=== PATIENT | male | born 1930 | race African-American/Black ===

== ENCOUNTER 2017-01-20 23:14 | Inpatient (IN) | payer MEDICARE, OTHER ==
--- NOTE | ~2017-01-20 | DS ---
Discharge Summary [facility] [address] [place]. [address] NAME: MERCEDES RAMACHANDRAN : [birth year] STATUS : DIS IN PAT#: [id number] AGE: 86 ADM/REG DATE : 01/21/17 MR#: [id number] REPORT SERV DATE: 01/26/17 DICTATED BY: TODD MARTINEZ DATE: 01/25/17 REPORT STATUS : Draft TRANSCRIBED BY: MODL DATE: 01/25/17 ADMISSION DATE: 01/21/2017 DISCHARGE DATE: 01/25/2017 CONDITION ON DISCHARGE: Stable. DISPOSITION: Discharge to home with Home Health Nurse and Home PT/OT. CONSULTATIONS: GI consult by Dr. Becca Scott. PROCEDURES PERFORMED DURING THIS HOSPITALIZATION: Include EGD and colonoscopy. DIAGNOSES ON DISCHARGE: Include 1. Lower GI bleed or rectal hemorrhage which has resolved and this is most likely due to diverticulosis and internal hemorrhoids combination. 2. Chronic atrial fibrillation - The patient now is only on aspirin 81 mg once a day as he is at high risk for GI bleed. Given all the risk factors, he does not need to be on any stronger anticoagulation than aspirin 81 mg once a day as pretty much this is lone atrial fibrillation and at this time given this risk of GI bleed no other anticoagulants. Other diagnoses that are stable include diabetes mellitus- controlled, hypertension-controlled, COPD-controlled, history of congestive heart failure which is stable, moderately advanced dementia, which is also stable at this time. BRIEF HOSPITAL COURSE: The patient is an 86-year-old, black male patient, who was admitted with the diagnosis as outlined in history and physical exam. Essentially, he was admitted with extreme fatigue and hemoglobin and hematocrit as low as 5.6 and 16. The patient was transferred to the unit and given blood transfusion and GI was consulted promptly. The patient underwent an upper endoscopy or EGD that showed surprisingly completely normal esophagus, stomach, and duodenum without any bleeding. Then subsequently he underwent a colonoscopy. This showed again, no bleeding but a diverticulosis which probably had caused the previous bleed and also internal hemorrhoids. The patient was then transferred back to floor in stable condition. For the last 48 hours, the patient has been tolerating food well and has had bowel movements without absolutely any more bleeding. His fatigue also has significantly improved. He in fact is able to get around somewhat in the room with the help of a walker. His daughter called this morning requesting physical therapy and occupational therapy at home and this is appropriate. Hence, we are discharging him home with Home Health, Home PT, and Home OT. He will be going home on the following medications: Aspirin 81 mg once a day, metformin 500 mg p.o. b.i.d., Daliresp 500 mcg p.o. at bedtime, Altace 2.5 mg once a day, glipizide 5 mg p.o. b.i.d., Lopressor 12.5 mg p.o. t.i.d., polysaccharide iron complex 150 mg p.o. b.i.d., Aricept 10 mg p.o. daily, aspirin 81 mg p.o. daily, Rythmol or propafenone 300 mg p.o. three times a day for atrial fibrillation, megestrol acetate, Megace 40 mg p.o. daily, Prilosec 20 mg once a day. Spiriva once a day as directed, Pulmicort twice a day as directed, Perforomist inhalation 20 mcg inhalation twice a day and all this is for his COPD. Discharge Summary [place] [id number] [place]. [address] NAME: MERCEDES RAMACHANDRAN : [birth year] STATUS : DIS IN PAT#: [id number] AGE: 86 ADM/REG DATE : 01/21/17 MR#: [id number] REPORT SERV DATE: 01/26/17 DICTATED BY: TODD MARTINEZ DATE: 01/25/17 REPORT STATUS : Draft TRANSCRIBED BY: JEANETTE DATE: 01/25/17 Regarding his diabetes, the patient will continue glargine insulin or Lantus insulin at 10 units subcutaneously at bedtime. Verapamil 200 mg p.o. at bedtime, will be continued. The patient is also being given MiraLAX powder one packet p.o. daily as directed. LABORATORY DATA: I have the following most recent lab results on this patient. CBC on the day of discharge shows a WBC of 7.4, hemoglobin 8.9, hematocrit 28.1, and platelet count of 339. Electrolyte profile shows completely normal electrolytes and BUN is 16 and creatinine is 1.1. I have spent about 40 minutes in coordinating discharge care of this patient including face- to-face encounter and the patient is advised to follow up with his PCP and other specialists as scheduled. CARMELINA/JEANETTE Todd Martniez M.D. / [phone] CC: Kacy Starr M.D.
--- NOTE | ~2017-01-20 | EGD ---
EGD REPORT [facility] [address] [place]. [address] NAME: MERCEDES JUDGE : [birth year] STATUS : ADM IN PAT#: [id number] AGE: 86 ADM/REG DATE : 01/21/17 MR#: [id number] REPORT SERV DATE: 01/22/17 DICTATED BY: BENITO ALEGRIA DATE: 01/22/17 REPORT STATUS : Draft TRANSCRIBED BY: [employer] DATE: 01/22/17 Endoscopy Center Patient Name: Mercedes Judge Date of : 1930 Attending MD: BENITO ALEGRIA, Procedure Date No Time: 01/22/2017 Procedure: Colonoscopy Indications: Iron deficiency anemia Medicines: Monitored Anesthesia Care Complications: No immediate complications. Estimated blood loss: None. Procedure: Pre-Anesthesia Assessment: - ASA Grade Assessment: IV - A patient with severe systemic disease that is a constant threat to life. After I obtained informed consent, the scope was passed under direct vision. Throughout the procedure, the patient's blood pressure, pulse, and oxygen saturations were monitored continuously. The CF [id number] was introduced through the anus and advanced to the terminal ileum. The colonoscopy was performed without difficulty. The patient tolerated the procedure well. The quality of the bowel preparation was adequate. Findings: The perianal and digital rectal examinations were normal. Internal hemorrhoids were found, and they were Grade II (internal hemorrhoids that prolapse but reduce spontaneously). A pedunculated polyp was found in the ascending colon. The polyp was 30 mm in size. The polyp was removed with a hot snare. Resection and retrieval were complete. Verification of patient identification for the specimen was done. Estimated blood loss was minimal. A sessile polyp was found in the transverse colon. The polyp was 14 mm in size. The polyp was removed with a hot snare. Resection and retrieval were complete. Verification of patient identification for the specimen was done. Estimated blood loss was minimal. A sessile polyp was found in the transverse colon. The polyp was 6 mm in size. The polyp was removed with a cold snare. Resection and retrieval were complete. Verification of patient identification for the specimen was done. Estimated blood loss was minimal. Many small-mouthed diverticula were found in the entire colon. The exam was otherwise without abnormality. Impression: - Internal hemorrhoids. - One 30 mm polyp in the ascending colon. Resected and retrieved. - One 14 mm polyp in the transverse colon. Resected and EGD REPORT [address] [address] NAME: MERCEDES JUDGE : [birth year] STATUS : ADM IN [facility]#: [id number] AGE: 86 ADM/REG DATE : 01/21/17 MR#: [id number] REPORT SERV DATE: 01/22/17 DICTATED BY: BENITO ALEGRIA DATE: 01/22/17 REPORT STATUS : Draft TRANSCRIBED BY: [employer] DATE: 01/22/17 retrieved. - One 6 mm polyp in the transverse colon. Resected and retrieved. - Diverticulosis in the entire examined colon. - The examination was otherwise normal. Recommendation: - Patient has a contact number available for emergencies. The signs and symptoms of potential delayed complications were discussed with the patient. Return to normal activities tomorrow. Written discharge instructions were provided to the patient. - Return to previous diet. - Continue present medications. - Await pathology results. - Repeat colonoscopy for surveillance based on pathology results. Procedure Code(s): --- Professional --- 39061, Colonoscopy, flexible, proximal to splenic flexure; with removal of tumor(s), polyp(s), or other lesion(s) by snare technique Diagnosis Code(s): --- Professional --- K64.1, Second degree hemorrhoids K57.30, Diverticulosis of large intestine without perforation or abscess without bleeding D12.3, Benign neoplasm of transverse colon D12.2, Benign neoplasm of ascending colon D50.9, Iron deficiency anemia, unspecified CPT copyright 2013 [employer]. All rights reserved. The codes documented in this report are preliminary and upon tuck pointer review may be revised to meet current compliance requirements. BENITO ALEGRIA, 01/22/2017 3:42 PM Number of Addenda: 0 Note Initiated On: 01/22/2017 3:11 PM Scope Withdrawal Time 0 hours 9 minutes 22 seconds
--- NOTE | ~2017-01-20 | EGD ---
EGD REPORT [facility] [address] [place]. [address] NAME: MERCEDES JUDGE : [birth year] STATUS : ADM IN PAT#: [id number] AGE: 86 ADM/REG DATE : 01/21/17 MR#: [id number] REPORT SERV DATE: 01/21/17 DICTATED BY: MATT POLLARD DATE: 01/21/17 REPORT STATUS : Draft TRANSCRIBED BY: [facility] DATE: 01/21/17 Endoscopy Center Patient Name: Mercedes Judge Date of : 1930 Attending MD: MATT POLLARD MD Procedure Date No Time: 01/21/2017 Procedure: Upper GI endoscopy Indications: Melena Referring MD: ISABELLA HARTLEY Medicines: Monitored Anesthesia Care Complications: No immediate complications. Estimated blood loss: None. Procedure: Pre-Anesthesia Assessment: - ASA Grade Assessment: III - A patient with severe systemic disease. After obtaining informed consent, the endoscope was passed under direct vision. Throughout the procedure, the patient's blood pressure, pulse, and oxygen saturations were monitored continuously. The GIF [id number] was introduced through the mouth, and advanced to the second part of duodenum. The upper GI endoscopy was accomplished without difficulty. The patient tolerated the procedure well. Findings: The examined esophagus was normal. The stomach was normal. The examined duodenum was normal. The cardia and gastric fundus were normal on retroflexion. Impression: - Normal examination with no suggestion of bleeding Recommendation: - [facility]. - Check hemoglobin q 12 hours until stable. - Perform a colonoscopy tomorrow. Procedure Code(s): --- Professional --- 48912, Esophagogastroduodenoscopy, flexible, transoral; diagnostic, including collection of specimen(s) by brushing or washing, when performed (separate procedure) Diagnosis Code(s): --- Professional --- K92.1, Melena CPT copyright 2013 [employer]. All rights reserved. EGD REPORT [facility] [address] [address] NAME: MERCEDES JUDGE : [birth year] STATUS : ADM IN [facility]#: [id number] AGE: 86 ADM/REG DATE : 01/21/17 MR#: [id number] REPORT SERV DATE: 01/21/17 DICTATED BY: MATT POLLARD DATE: 01/21/17 REPORT STATUS : Draft TRANSCRIBED BY: [employer] DATE: 01/21/17 The codes documented in this report are preliminary and upon graphite disk assembler review may be revised to meet current compliance requirements. Matt Pollard MD MATT POLLARD MD 01/21/2017 11:51 AM This report has been signed electronically. Number of Addenda: 0 Note Initiated On: 01/21/2017 10:48 AM Scope Withdrawal Time 0 hours 0 minutes 0 seconds [address] [place] [address]
--- NOTE | ~2017-01-20 | CN ---
Consultation Report [place] [address] [facility] [place]. [address] NAME: MERCEDES JUDGE : [birth year] STATUS : ADM IN [facility]#: [id number] AGE: 86 ADM/REG DATE : 01/21/17 MR#: [id number] REPORT SERV DATE: 01/21/17 DICTATED BY: BECCA SCOTT DATE: 01/21/17 REPORT STATUS : Draft TRANSCRIBED BY: MODL DATE: 01/21/17 CONSULTATION DATE OF CONSULTATION: 01/21/2017 REASON FOR EVALUATION: GI bleeding. HISTORY OF PRESENT ILLNESS: Mr. Judge is an 86-year-old community dwelling man, who presents with worsening acute on chronic anemia. The patient has a history of recurrent GI bleeding characterized by melena. 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 His last colonoscopy was 07/2012, with removal of a cecal tubulovillous adenoma and a transverse colon tubular adenoma. He has had recent worsening fatigue, and his daughter noticed that his stools are black. He uses aspirin on a daily basis, but does not use anti-inflammatory medications. Note, this was accompanied by omeprazole. PAST MEDICAL HISTORY: 1. COPD. 2. History of congestive heart failure. 3. Atrial fibrillation. 4. Hypertension. 5. Diabetes mellitus. 6. Dementia. 7. History of bladder cancer. 8. Remote history of tobacco use. 9. History of pneumonia. 10.History of urinary tract infection. MEDICATIONS: On admission include albuterol, aspirin, Pulmicort, B12, Aricept, glipizide, insulin, Megace, Glucophage, Lopressor, Prilosec, iron supplement, Rythmol, Altace, Daliresp, Spiriva, and Verelan. ALLERGIES: MORPHINE AND CODEINE CAUSE ALTERED MENTAL STATUS. SOCIAL HISTORY: The patient is a retired it business process architect. He lives locally. His daughter lives close by and she has worked in healthcare. She has tentative problems. FAMILY HISTORY: Noncontributory. PHYSICAL EXAMINATION: GENERAL: Reveals an elderly man resting comfortably. VITAL SIGNS: Blood pressure 117/46, temp 97.9, heart rate 57. SKIN: Warm and dry with no lesions. HEENT: No icterus. Consultation Report [facility] [address] [address] NAME: MERCEDES JUDGE : [birth year] STATUS : ADM IN [facility]#: [id number] AGE: 86 ADM/REG DATE : 01/21/17 MR#: [id number] REPORT SERV DATE: 01/21/17 DICTATED BY: BECCA SCOTT DATE: 01/21/17 REPORT STATUS : Draft TRANSCRIBED BY: MODL DATE: 01/21/17 NECK: Supple. No adenopathy. CHEST: With bilateral squeaks. CARDIAC: Regular rate and rhythm at this time with no murmur. ABDOMEN: Normal bowel sounds. Soft and nontender. LABORATORY DATA: Sodium 142, potassium 4.2, BUN 18, creatinine 1.3. AST 30, ALT 14, alkaline phosphatase 50, total bilirubin 0.3. White blood cell count 7.5, hemoglobin 5.6 with transfusion in progress, MCV 69.8, MCH 19, platelets 377,000. Protime 14, INR 1.2, PTT 26.3. 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 RECOMMENDATIONS: 1. Upper endoscopy. 2. Consider next step including colonoscopy versus small bowel capsule study. 3. Hold aspirin for now. 4. Agree with PPI. Pending results of examination. 5. Follow up H and H after transfusion. Thank you for asking us to participate in his management. CRISTÓBAL/JEANETTE Becca Scott M.D. / [phone] CC: MD Josef Avila M.D. James Scott Manton, M.D. Robert McKoy, M.D.
--- NOTE | ~2017-01-20 | HP ---
History And Physical [place] [id number] [facility] [place]. [address] NAME: MERCEDES RAMACHANDRAN : [birth year] STATUS : ADM IN [facility]#: [id number] AGE: 86 ADM/REG DATE : 01/21/17 MR#: [id number] REPORT SERV DATE: 01/21/17 DICTATED BY: OLIVERIO MARRERO DATE: 01/21/17 REPORT STATUS : Draft TRANSCRIBED BY: MODL DATE: 01/21/17 DATE OF ADMISSION: 01/21/2017 CHIEF COMPLAINT: Extreme fatigue. HISTORY OF PRESENT ILLNESS: This is an 86-year-old gentleman with history of diabetes, hypertension, COPD, congestive heart failure, atrial fibrillation and dementia presenting with extreme fatigue. Please note that the patient has dementia at baseline and was not able to provide any history. The patient's daughter was present in the ER who provided much of the history. I also carefully reviewed existing medical records. The patient was brought to the ER because the patient was suffering from extreme fatigue. The patient's daughter first noticed it about a week ago, when he started requiring increasing amount of assistance to get around and the past day or two, it has been so bad that the patient was actually having a bowel movement in bed, because he was not able to get out. Today, the patient's daughter noticed that his bowels were unusually black. 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 With the patient having at least moderate dementia, he really did not have any acute complaints and he looked comfortable throughout this episode. In the ER, patient was found to be afebrile and hemodynamically stable. Initial lab evaluation was actually fairly benign except for a hemoglobin of 5.6. The patient's baseline hemoglobin is around 10. Internal Medicine consultation was requested for admission of the patient for further evaluation and care. REVIEW OF SYSTEMS: The patient denies any fevers or chills. Also, 14-point review of systems reviewed and negative other than mentioned above. MEDICATIONS: 1. ProAir two puffs inhaled as needed. 2. Albuterol nebulizer as needed. 3. Aspirin 81 mg p.o. daily. 4. Pulmicort 0.5 mg inhaled twice daily. 5. Vitamin B12 1000 mcg IM every 30 days. 6. Aricept 10 mg p.o. at bedtime. 7. Perforomist inhaled 20 mcg twice daily. 8. Glucotrol 5 mg p.o. b.i.d. 9. Lantus 10 units subcu at bedtime. 10.Megace 40 mg p.o. daily. 11.Metformin 500 mg p.o. b.i.d. 12.Lopressor 12.5 mg p.o. three times daily. 13.Prilosec 20 mg p.o. daily. 14.Altorex 150 mg p.o. b.i.d. 15.Rythmol 300 mg p.o. three times daily. History And Physical [address] [place]. [address] NAME: MERCEDES RAMACHANDRAN : [birth year] STATUS : ADM IN [facility]#: [id number] AGE: 86 ADM/REG DATE : 01/21/17 MR#: [id number] REPORT SERV DATE: 01/21/17 DICTATED BY: OLIVERIO MARRERO DATE: 01/21/17 REPORT STATUS : Draft TRANSCRIBED BY: JEANETTE DATE: 01/21/17 16.Altace 2.5 mg p.o. daily. 17.Daliresp 500 mcg p.o. at bedtime. 18.Spiriva one capsule inhaled daily. 19.Verapamil 200 mg p.o. at bedtime. ALLERGIES: 1. MORPHINE. 2. CODEINE. PAST MEDICAL HISTORY: 1. Insulin-dependent diabetes type 2. 2. COPD, on oxygen at baseline 2.5 L. 3. Hypertension. 4. Congestive heart failure, unknown type and ejection fraction. 5. Atrial fibrillation. 6. Dementia. 7. 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 PAST SURGICAL HISTORY: 1. Some kind of bladder surgery for cancer in the past. FAMILY HISTORY: 1. Diabetes. 2. Miscellaneous cancers. SOCIAL HISTORY: The patient does not smoke, drink alcohol, or use any illicit drugs. The patient lives at home with his . The patient's daughter lives 2 blocks away and she visits him on daily basis. The patient's daughter is here in the ER at bedside. PHYSICAL EXAMINATION: VITAL SIGNS: Temperature 97.9, blood pressure 120/57, pulse 59, respiratory rate is 22, saturating 96% on 2.5 L of oxygen which is his home dose. NEUROLOGIC: The patient is alert, but pleasantly disoriented with the dementia. The patient has no obvious focal neurologic deficits. GENERAL: The patient is awake, does not appear to be in acute distress, and he is cooperative. NECK: No JVD. No lymphadenopathy. Normal thyroid. CHEST: No midline sternotomy scar and no tenderness to palpation. LUNGS: Clear to auscultation bilaterally with normal respiratory effort on 2.5 L of oxygen per nasal cannula, which is his home dose. CARDIOVASCULAR: Regular rate and rhythm with no murmurs, rubs, or gallops, and PMI is nondisplaced. ABDOMEN: Soft, nontender, with active bowel sounds and no organomegaly. EXTREMITIES: No edema. Normal distal pulses. No calf tenderness. SKIN: Clean, dry, warm, and intact. History And Physical [address] [address] NAME: MERCEDES RAMACHANDRAN : [birth year] STATUS : ADM IN [facility]#: [id number] AGE: 86 ADM/REG DATE : 01/21/17 MR#: [id number] REPORT SERV DATE: 01/21/17 DICTATED BY: OLIVERIO MARRERO DATE: 01/21/17 REPORT STATUS : Draft TRANSCRIBED BY: JEANETTE DATE: 01/21/17 LABORATORY DATA: Sodium is 142, potassium 4.2, chloride 107, BUN 18, creatinine 1.32, glucose 81, calcium 8.6. LFTs are within normal limits. White blood cell count is 7.5, hemoglobin is 5.6, MCV is 69.8, platelets 377, INR is 1.2. ASSESSMENT: This is an 86-year-old gentleman with history of diabetes, chronic obstructive pulmonary disease, congestive heart failure, atrial fibrillation and GI bleed presenting with extreme fatigue and upper GI bleed. 1. Extreme fatigue, manifestation of symptomatic anemia due to an upper gastrointestinal bleed. The patient's hemoglobin is 5.6 here in the ER today. 2. Congestive heart failure, unknown type and ejection fraction, however, patient appears to be well compensated and euvolemic. 3. Chronic obstructive pulmonary disease, on home oxygen at 2.5 L. Stable today. 4. Hypertension. 5. Chronic atrial fibrillation. 6. At least moderate dementia. 7. Diabetes type 2. PLAN: My plan is to admit the patient under telemetry monitoring. The patient will be given 2 packs of RBCs. The patient will not be given IV fluids as patient will get plenty of volume resuscitation with PRBCs alone, and I do not want to induce congestive heart failure, if anything. Also noting that the patient is very hemodynamically stable. H and H's will be closely monitored. The patient will be on Protonix drip and I will get GI consultation at this time. I will also go ahead and request medical records from Dr. Nicolas's office who is the patient's interactive marketing strategist to establish baseline congestive heart failure status. Otherwise, for the rest of stable past medical conditions, including COPD, hypertension, atrial fibrillation dementia et. al. I will continue home medications. Standard DVT prophylaxis. The patient is full code at this time. YSC/MODL Oliverio Marrero MD / [phone] CC: Scottie Nicolas M.D. Tristan Eden M.D.
[~2017-01-20 23:14] MED LIST: ACET500CAP PO; ALLEGRA180 PO; ALTA2.5 PO; ALTOREX150 MG PO; ARICEPT10 PO; ARICEPT5 PO; ASAB PO; B121000P IM; C5 PO; CEFT5 PO; CLARIT10 PO; COUMADIN3 MG PO; COUMADIN4 MG PO; CYANO1000T PO; DALIRESP500 MCG PO; DIGITEK0.125 MG PO; DUONEB INH; GLIPIZIDE PO; GLUCOTRO10 PO; GLUCOTROL5 PO; GLUCPH PO; HALF81 PO; IFEREX 150 PO; INSNOVN SC; LAN25 PO; LANTUS SC; LOM PO; LOP25 PO; MEG40 PO; METAGLIP1 TA2 PO; METFORMIN PO; NASACORTAQ NAS; OMNICEF300 PO; PERFOROM INH; POLY IRON150 MG PO; PRILO PO; PROAIR HFA INH; PULMICORT180 MCG INH; PULRESP.5 INH; RHINOCORT; RYTHMOL150 MG PO; RYTHMOL225 MG PO; RYTHMOL300 MG PO; SPIRIVA INH; STERAP512; SUPER B-100 PO; TESS PO; TRAZ50 PO; ULTRAM50 PO; VENTOLIN HFA INH; VERELANPM1 PO; VERELANPM2 PO; VITAMIN B PO; VITAMIN B12; X25 PO; [UNRECOGNIZED DRUG - CODE] PO
[2017-01-20 23:40] LABS: BASOPHILS 0.4 %; BASOPHILS ABSOLUTE 0.03 10/3/uL (0.0-0.16); EOSINOPHILS 5.1 %; EOSINOPHILS ABSOLUTE 0.38 10/3/uL (0.0-0.53); ER CBC TAT 0 Hrs 05 Mins; HEMATOCRIT 19.6 % (40.0-51.0); HEMOGLOBIN 5.6 g/dL (13.6-17.8); IMMATURE GRANULOCYTES 0.1 %; IMMATURE GRANULOCYTES ABSOLUTE 0.01 10/3/uL (0.0-0.11); LYMPHOCYTES 13.4 %; MEAN CORPUS HGB CONC 28.6 g/dL (32.0-36.0); MEAN CORPUSCULAR HEMOGLOB 19.9 pg (26.0-34.0); MEAN CORPUSCULAR VOLUME 69.8 fL (80-100); MEAN PLATELET VOLUME 8.5 fL (9.2-13.0); MONOCYTES 7.4 %; MONOCYTES ABSOLUTE 0.55 10/3/uL (0.21-1.20); NEUTROPHILS 73.6 %; NEUTROPHILS ABSOLUTE 5.51 10/3/uL (2.02-8.40); PLATELET COUNT 377 10/3/uL (150-400); RBC DISTRIBUTION WIDTH 16.3 % (12.0-16.0); RED CELL COUNT 2.81 10/6/uL (4.7-6.1); WHITE BLOOD CELLS 7.5 10/3/uL (4.5-10.5)
[2017-01-20 23:43] LABS: MANUAL DIFF NO %
[2017-01-20 23:49] LABS: INTERNATIONAL NORMAL RATI 1.2 UNITS (-); PARTIAL THROMBO TIME 26.3 SEC (22.5-37.2); PROTIME (NOT ORD) 14.8 SEC (12.0-14.5)
[2017-01-20 23:58] LABS: A/G RATIO 0.8 (0.7-1.9); ALBUMIN 3.1 G/DL (3.5-5.0); ALKALINE PHOSPHATASE 50 U/L (45-117); BUN (BLOOD UREA NITROGEN) 18 MG/DL (6-23); CALCIUM, SERUM 8.6 MG/DL (8.5-10.4); CHLORIDE, SERUM 107 MMOL/L (96-112); CO2 (CARBON DIOXIDE) 24 MMOL/L (24-34); CREATININE 1.32 MG/DL (0.70-1.30); GFR AFRICAN AMERICAN 56 ML/MIN (>=60); GFR NON AFRICAN AMERICAN 48 ML/MIN (>=60); GLOBULIN 3.7 G/DL (2.5-4.1); GLUCOSE, SERUM 81 MG/DL (60-99); POTASSIUM, SERUM 4.2 MMOL/L (3.5-5.3); SGOT(AST) < 3 U/L (5-40); SGPT(ALT) 14 U/L (5-65); SODIUM, SERUM 142 MMOL/L (135-148); TOTAL BILIRUBIN 0.3 MG/DL (0-1.2); TOTAL PROTEIN 6.8 G/DL (6.0-8.5)
[2017-01-21 00:06] LABS: PLATELET ESTIMATE ADQ (ADEQUATE)
[2017-01-21 00:07] LABS: ANISOCYTOSIS 1+ (5-10/OIF) (0-5/OIF); MACROCYTES 1+ (5-10/OIF) (0-5/OIF)
[2017-01-21] MEDS ORDERED: GLUCPH PO (00:29)
[2017-01-21] MEDS ORDERED: ALTA2.5 PO (00:29)
[2017-01-21] MEDS ORDERED: DALIRESP500 MCG PO (00:29)
[2017-01-21] MEDS ORDERED: LOP25 PO (00:30)
[2017-01-21] MEDS ORDERED: GLUCOTROL5 PO (00:30)
[2017-01-21] MEDS ORDERED: ARICEPT10 PO (00:30)
[2017-01-21] MEDS ORDERED: ALTOREX150 MG PO (00:30)
[2017-01-21] MEDS ORDERED: PULRESP.5 INH (00:31)
[2017-01-21] MEDS ORDERED: SPIRIVA INH (00:31)
[2017-01-21] MEDS ORDERED: RYTHMOL300 MG PO (00:31)
[2017-01-21] MEDS ORDERED: B121000P IM/SC (00:31)
[2017-01-21] MEDS ORDERED: MEG40 PO (00:31)
[2017-01-21] MEDS ORDERED: HALF81 PO (00:31)
[2017-01-21] MEDS ORDERED: PRILO PO (00:31)
[2017-01-21] MEDS ORDERED: PERFOROM INH (00:32)
[2017-01-21] MEDS ORDERED: LANTUS SC (00:32)
[2017-01-21] MEDS ORDERED: PROAIR HFA INH (00:32)
[2017-01-21] MEDS ORDERED: ALBUTEROL0.083 % INH (00:33)
[2017-01-21] MEDS ORDERED: VERELANPM2 PO (00:33)
[2017-01-21 10:23] LABS: BASOPHILS 0.1 %; BASOPHILS ABSOLUTE 0.01 10/3/uL (0.0-0.16); EOSINOPHILS 3.6 %; EOSINOPHILS ABSOLUTE 0.25 10/3/uL (0.0-0.53); IMMATURE GRANULOCYTES 0.1 %; IMMATURE GRANULOCYTES ABSOLUTE 0.01 10/3/uL (0.0-0.11); LYMPHOCYTES 15.2 %; LYMPHOCYTES ABSOLUTE 1.05 10/3/uL (0.67-4.30); MEAN PLATELET VOLUME 9.4 fL (9.2-13.0); MONOCYTES 6.6 %; MONOCYTES ABSOLUTE 0.46 10/3/uL (0.21-1.20); NEUTROPHILS 74.4 %; NEUTROPHILS ABSOLUTE 5.14 10/3/uL (2.02-8.40); PLATELET COUNT 357 10/3/uL (150-400); RETICULOCYTE COUNT 1.9 % (0.5-2.5); WHITE BLOOD CELLS 6.9 10/3/uL (4.5-10.5)
[2017-01-21 10:24] LABS: HEMATOCRIT 26.8 % (40.0-51.0); HEMOGLOBIN 8.4 g/dL (13.6-17.8); MANUAL DIFF NO %; MEAN CORPUS HGB CONC 31.3 g/dL (32.0-36.0); MEAN CORPUSCULAR HEMOGLOB 23.4 pg (26.0-34.0); MEAN CORPUSCULAR VOLUME 74.7 fL (80-100); RBC DISTRIBUTION WIDTH 20.3 % (12.0-16.0); RED CELL COUNT 3.59 10/6/uL (4.7-6.1); RETICULOCYTE COUNT ABSOLUTE 67.9 10/3/uL (20.2-119.8)
[2017-01-21 10:38] LABS: HEMATOCRIT 31.2 % (40.0-51.0); HEMOGLOBIN 9.5 g/dL (13.6-17.8)
[2017-01-21 10:46] LABS: ANISOCYTOSIS 1+ (5-10/OIF) (0-5/OIF); MICROCYTES 1+ (5-10/OIF) (0-5/OIF); PLATELET ESTIMATE ADQ (ADEQUATE); RBC MORPHOLOGY ABN (NORMAL)
[2017-01-21 11:14] LABS: BUN (BLOOD UREA NITROGEN) 16 MG/DL (6-23); CALCIUM, SERUM 8.8 MG/DL (8.5-10.4); CHLORIDE, SERUM 104 MMOL/L (96-112); CO2 (CARBON DIOXIDE) 27 MMOL/L (24-34); CREATININE 1.29 MG/DL (0.70-1.30); FERRITIN 5 NG/ML (26-388); FOLATE 21.9 NG/ML (>5.2); GFR AFRICAN AMERICAN 57 ML/MIN (>=60); GFR NON AFRICAN AMERICAN 50 ML/MIN (>=60); GLUCOSE, SERUM 76 MG/DL (60-99); IRON BINDING CAPACITY 290 MCG/DL (250-450); IRON, SERUM 27 MCG/DL (35-150); POTASSIUM, SERUM 3.9 MMOL/L (3.5-5.3); SODIUM, SERUM 140 MMOL/L (135-148); ULTRASENSITIVE TSH 0.605 MCIU/ML (0.358-3.740)
[2017-01-21 16:03] LABS: HEMOGLOBIN 9.3 g/dL (13.6-17.8)
[2017-01-21 16:05] LABS: HEMATOCRIT 29.7 % (40.0-51.0)
[2017-01-21 22:31] LABS: HEMATOCRIT 26.2 % (40.0-51.0); HEMOGLOBIN 8.3 g/dL (13.6-17.8)
[2017-01-22 06:01] LABS: BASOPHILS 0.3 %; BASOPHILS ABSOLUTE 0.02 10/3/uL (0.0-0.16); EOSINOPHILS ABSOLUTE 0.34 10/3/uL (0.0-0.53); HEMATOCRIT 26.8 % (40.0-51.0); HEMOGLOBIN 8.4 g/dL (13.6-17.8); IMMATURE GRANULOCYTES 0.3 %; IMMATURE GRANULOCYTES ABSOLUTE 0.02 10/3/uL (0.0-0.11); LYMPHOCYTES 17.7 %; LYMPHOCYTES ABSOLUTE 1.21 10/3/uL (0.67-4.30); MEAN CORPUS HGB CONC 31.3 g/dL (32.0-36.0); MEAN CORPUSCULAR HEMOGLOB 23.5 pg (26.0-34.0); MEAN CORPUSCULAR VOLUME 75.1 fL (80-100); MEAN PLATELET VOLUME 8.8 fL (9.2-13.0); MONOCYTES 9.9 %; MONOCYTES ABSOLUTE 0.68 10/3/uL (0.21-1.20); NEUTROPHILS 66.8 %; NEUTROPHILS ABSOLUTE 4.58 10/3/uL (2.02-8.40); PLATELET COUNT 342 10/3/uL (150-400); RBC DISTRIBUTION WIDTH 20.5 % (12.0-16.0); RED CELL COUNT 3.57 10/6/uL (4.7-6.1); WHITE BLOOD CELLS 6.9 10/3/uL (4.5-10.5)
[2017-01-22 06:02] LABS: MANUAL DIFF NO %
[2017-01-22 06:08] LABS: BUN (BLOOD UREA NITROGEN) 15 MG/DL (6-23); CALCIUM, SERUM 8.6 MG/DL (8.5-10.4); CHLORIDE, SERUM 107 MMOL/L (96-112); CO2 (CARBON DIOXIDE) 25 MMOL/L (24-34); CREATININE 1.17 MG/DL (0.70-1.30); GFR AFRICAN AMERICAN 65 ML/MIN (>=60); GFR NON AFRICAN AMERICAN 56 ML/MIN (>=60); POTASSIUM, SERUM 3.4 MMOL/L (3.5-5.3); SODIUM, SERUM 143 MMOL/L (135-148)
[2017-01-22 06:10] LABS: GLUCOSE, SERUM 54 MG/DL (60-99)
[2017-01-22 10:16] LABS: HEMOGLOBIN 9.3 g/dL (13.6-17.8)
[2017-01-22 10:17] LABS: HEMATOCRIT 29.7 % (40.0-51.0)
[2017-01-23 06:35] LABS: BASOPHILS 0.1 %; BASOPHILS ABSOLUTE 0.01 10/3/uL (0.0-0.16); EOSINOPHILS 4.2 %; EOSINOPHILS ABSOLUTE 0.31 10/3/uL (0.0-0.53); HEMOGLOBIN 8.5 g/dL (13.6-17.8); IMMATURE GRANULOCYTES 0.3 %; IMMATURE GRANULOCYTES ABSOLUTE 0.02 10/3/uL (0.0-0.11); LYMPHOCYTES 11.6 %; LYMPHOCYTES ABSOLUTE 0.85 10/3/uL (0.67-4.30); MEAN CORPUS HGB CONC 31.8 g/dL (32.0-36.0); MEAN CORPUSCULAR HEMOGLOB 23.7 pg (26.0-34.0); MEAN CORPUSCULAR VOLUME 74.6 fL (80-100); MEAN PLATELET VOLUME 9.4 fL (9.2-13.0); MONOCYTES 9.6 %; NEUTROPHILS 74.2 %; NEUTROPHILS ABSOLUTE 5.41 10/3/uL (2.02-8.40); PLATELET COUNT 359 10/3/uL (150-400); RBC DISTRIBUTION WIDTH 20.7 % (12.0-16.0); RED CELL COUNT 3.58 10/6/uL (4.7-6.1); WHITE BLOOD CELLS 7.3 10/3/uL (4.5-10.5)
[2017-01-23 06:37] LABS: HEMATOCRIT 26.7 % (40.0-51.0); MANUAL DIFF NO %
[2017-01-23 06:48] LABS: BUN (BLOOD UREA NITROGEN) 13 MG/DL (6-23); CALCIUM, SERUM 8.6 MG/DL (8.5-10.4); CHLORIDE, SERUM 108 MMOL/L (96-112); CO2 (CARBON DIOXIDE) 27 MMOL/L (24-34); CREATININE 1.12 MG/DL (0.70-1.30); GFR AFRICAN AMERICAN 68 ML/MIN (>=60); GFR NON AFRICAN AMERICAN 59 ML/MIN (>=60); POTASSIUM, SERUM 3.3 MMOL/L (3.5-5.3); SODIUM, SERUM 143 MMOL/L (135-148)
[2017-01-23 06:52] LABS: GLUCOSE, SERUM 79 MG/DL (60-99)
[2017-01-24 07:43] LABS: BASOPHILS 0.1 %; BASOPHILS ABSOLUTE 0.01 10/3/uL (0.0-0.16); EOSINOPHILS 4.9 %; EOSINOPHILS ABSOLUTE 0.34 10/3/uL (0.0-0.53); HEMATOCRIT 25.4 % (40.0-51.0); HEMOGLOBIN 7.8 g/dL (13.6-17.8); IMMATURE GRANULOCYTES 0.1 %; IMMATURE GRANULOCYTES ABSOLUTE 0.01 10/3/uL (0.0-0.11); MEAN CORPUS HGB CONC 30.7 g/dL (32.0-36.0); MEAN CORPUSCULAR HEMOGLOB 23.1 pg (26.0-34.0); MEAN CORPUSCULAR VOLUME 75.1 fL (80-100); MEAN PLATELET VOLUME 9.1 fL (9.2-13.0); MONOCYTES 8.8 %; MONOCYTES ABSOLUTE 0.61 10/3/uL (0.21-1.20); NEUTROPHILS 73.1 %; NEUTROPHILS ABSOLUTE 5.06 10/3/uL (2.02-8.40); PLATELET COUNT 351 10/3/uL (150-400); RBC DISTRIBUTION WIDTH 20.9 % (12.0-16.0); RED CELL COUNT 3.38 10/6/uL (4.7-6.1); WHITE BLOOD CELLS 6.9 10/3/uL (4.5-10.5)
[2017-01-24 07:44] LABS: BUN (BLOOD UREA NITROGEN) 13 MG/DL (6-23); CALCIUM, SERUM 8.5 MG/DL (8.5-10.4); CHLORIDE, SERUM 106 MMOL/L (96-112); CO2 (CARBON DIOXIDE) 27 MMOL/L (24-34); CREATININE 1.12 MG/DL (0.70-1.30); GFR AFRICAN AMERICAN 68 ML/MIN (>=60); GFR NON AFRICAN AMERICAN 59 ML/MIN (>=60); GLUCOSE, SERUM 93 MG/DL (60-99); POTASSIUM, SERUM 3.5 MMOL/L (3.5-5.3); SODIUM, SERUM 142 MMOL/L (135-148)
[2017-01-24 07:45] LABS: MANUAL DIFF NO %
[2017-01-25 07:06] LABS: BASOPHILS 0.1 %; BASOPHILS ABSOLUTE 0.01 10/3/uL (0.0-0.16); EOSINOPHILS 4.3 %; EOSINOPHILS ABSOLUTE 0.32 10/3/uL (0.0-0.53); HEMOGLOBIN 8.9 g/dL (13.6-17.8); IMMATURE GRANULOCYTES 0.1 %; IMMATURE GRANULOCYTES ABSOLUTE 0.01 10/3/uL (0.0-0.11); LYMPHOCYTES 10.3 %; LYMPHOCYTES ABSOLUTE 0.76 10/3/uL (0.67-4.30); MEAN CORPUS HGB CONC 31.7 g/dL (32.0-36.0); MEAN CORPUSCULAR HEMOGLOB 23.8 pg (26.0-34.0); MEAN CORPUSCULAR VOLUME 75.1 fL (80-100); MEAN PLATELET VOLUME 9.1 fL (9.2-13.0); MONOCYTES 8.3 %; MONOCYTES ABSOLUTE 0.61 10/3/uL (0.21-1.20); NEUTROPHILS 76.9 %; NEUTROPHILS ABSOLUTE 5.67 10/3/uL (2.02-8.40); PLATELET COUNT 339 10/3/uL (150-400); RED CELL COUNT 3.74 10/6/uL (4.7-6.1); WHITE BLOOD CELLS 7.4 10/3/uL (4.5-10.5)
[2017-01-25 07:09] LABS: HEMATOCRIT 28.1 % (40.0-51.0); MANUAL DIFF NO %
[2017-01-25 07:19] LABS: BUN (BLOOD UREA NITROGEN) 16 MG/DL (6-23); CALCIUM, SERUM 8.9 MG/DL (8.5-10.4); CHLORIDE, SERUM 105 MMOL/L (96-112); CO2 (CARBON DIOXIDE) 26 MMOL/L (24-34); CREATININE 1.19 MG/DL (0.70-1.30); GFR AFRICAN AMERICAN 63 ML/MIN (>=60); GFR NON AFRICAN AMERICAN 55 ML/MIN (>=60); POTASSIUM, SERUM 3.5 MMOL/L (3.5-5.3); SODIUM, SERUM 140 MMOL/L (135-148)
[2017-01-25 07:20] LABS: GLUCOSE, SERUM 121 MG/DL (60-99)
[2017-01-25] MEDS ORDERED: MIRALAX POWDER1 PKT PO (12:51)
[2017-07-01] MEDS ORDERED: PROTONIX PO (13:30)
[2017-07-07] MEDS ORDERED: FESO4 PO (16:47)
[2017-07-07] MEDS ORDERED: T PO (16:48)
== END 2017-01-25 14:59 | disposition home health service (06) | DRG 378 ==
LOC: ER 23:14 → ER/OF 01-21 01:12 → IMCU 01-21 03:34 → 1SO 01-21 15:24
PROVIDERS: Hospitalist; Internal Medicine; Internal Medicine Gastroenterology
PROC: 0DJ08ZZ Inspection of Upper Intestinal Tract, Via Natural or Artificial Opening Endoscopic (ICD-10-PCS; 2017-01-21)
PROC: 30233N1 Transfusion of Nonautologous Red Blood Cells into Peripheral Vein, Percutaneous Approach (ICD-10-PCS; 2017-01-21)
PROC: 0DBL8ZX Excision of Transverse Colon, Via Natural or Artificial Opening Endoscopic, Diagnostic (ICD-10-PCS; 2017-01-22)
PROC: 0DBK8ZX Excision of Ascending Colon, Via Natural or Artificial Opening Endoscopic, Diagnostic (ICD-10-PCS; principal; 2017-01-22 07:30)
DX: K57.31 Diverticulosis of large intestine without perforation or abscess with bleeding (principal); D62 Acute posthemorrhagic anemia; Q21.1 Atrial septal defect; F03.90 Unspecified dementia, unspecified severity, without behavioral disturbance, psychotic disturbance, mood disturbance, and anxiety; I11.0 Hypertensive heart disease with heart failure; I50.9 Heart failure, unspecified; Z99.81 Dependence on supplemental oxygen; I48.0 Paroxysmal atrial fibrillation; E11.9 Type 2 diabetes mellitus without complications; J44.9 Chronic obstructive pulmonary disease, unspecified; D12.3 Benign neoplasm of transverse colon; D12.2 Benign neoplasm of ascending colon; K64.1 Second degree hemorrhoids; Z28.20 Immunization not carried out because of patient decision for unspecified reason; Z79.82 Long term (current) use of aspirin; Z79.4 Long term (current) use of insulin; Z79.84 Long term (current) use of oral hypoglycemic drugs; Z79.899 Other long term (current) drug therapy; Z85.51 Personal history of malignant neoplasm of bladder; Z87.01 Personal history of pneumonia (recurrent); Z87.440 Personal history of urinary (tract) infections; Z88.5 Allergy status to narcotic agent
CPT/HCPCS: 36415; 36430; 80048; 80053; 82607; 82728; 82746; 82962; 83540; 83550; 84443; 85014; 85018; 85025; 85045; 85610; 85730; 86850; 86900; 86901; 86920; 88305; 93005; 94640; 97161-GP; 97166-GO; 99291; A9270-GY; C9113; G8978-CK-GP; G8979-CI-GP; G8987-CK-GO; G8988-CJ-GO; P9016

== ENCOUNTER 2017-01-28 19:28 | Emergency (ER) | payer MEDICARE, OTHER ==
[2017-01-28 15:47] LABS: BASOPHILS 0.3 %; BASOPHILS ABSOLUTE 0.02 10/3/uL (0.0-0.16); EOSINOPHILS 6.1 %; EOSINOPHILS ABSOLUTE 0.39 10/3/uL (0.0-0.53); HEMATOCRIT 29.8 % (40.0-51.0); IMMATURE GRANULOCYTES 0.2 %; IMMATURE GRANULOCYTES ABSOLUTE 0.01 10/3/uL (0.0-0.11); LYMPHOCYTES 18.6 %; LYMPHOCYTES ABSOLUTE 1.18 10/3/uL (0.67-4.30); MEAN CORPUS HGB CONC 30.2 g/dL (32.0-36.0); MEAN CORPUSCULAR HEMOGLOB 23.4 pg (26.0-34.0); MEAN PLATELET VOLUME 9.2 fL (9.2-13.0); MONOCYTES 6.4 %; MONOCYTES ABSOLUTE 0.41 10/3/uL (0.21-1.20); NEUTROPHILS 68.4 %; NEUTROPHILS ABSOLUTE 4.35 10/3/uL (2.02-8.40); PLATELET COUNT 375 10/3/uL (150-400); RBC DISTRIBUTION WIDTH 21.2 % (12.0-16.0); RED CELL COUNT 3.84 10/6/uL (4.7-6.1); WHITE BLOOD CELLS 6.4 10/3/uL (4.5-10.5)
[2017-01-28 15:48] LABS: MANUAL DIFF NO %; MEAN CORPUSCULAR VOLUME 77.6 fL (80-100)
[2017-01-28 15:56] LABS: INTERNATIONAL NORMAL RATI 1.1 UNITS (-); PARTIAL THROMBO TIME 27.4 SEC (22.5-37.2); PROTIME (NOT ORD) 14.4 SEC (12.0-14.5)
[2017-01-28 16:03] LABS: A/G RATIO 0.8 (0.7-1.9); ALBUMIN 3.2 G/DL (3.5-5.0); ALKALINE PHOSPHATASE 58 U/L (45-117); BUN (BLOOD UREA NITROGEN) 16 MG/DL (6-23); CALCIUM, SERUM 8.7 MG/DL (8.5-10.4); CHLORIDE, SERUM 108 MMOL/L (96-112); CO2 (CARBON DIOXIDE) 27 MMOL/L (24-34); CREATININE 1.21 MG/DL (0.70-1.30); GFR AFRICAN AMERICAN 62 ML/MIN (>=60); GFR NON AFRICAN AMERICAN 54 ML/MIN (>=60); GLOBULIN 3.9 G/DL (2.5-4.1); GLUCOSE, SERUM 132 MG/DL (60-99); SGOT(AST) 7 U/L (5-40); SGPT(ALT) 15 U/L (5-65); SODIUM, SERUM 143 MMOL/L (135-148); TOTAL BILIRUBIN 0.1 MG/DL (0-1.2); TOTAL PROTEIN 7.1 G/DL (6.0-8.5)
[~2017-01-28 19:28] MED LIST changes: +ALBUTEROL0.083 % INH; +B121000P IM/SC; +MIRALAX POWDER1 PKT PO
[2017-01-28 19:44] LABS: ASCORBIC ACID (UR NOT ORDER) NEG (NEG); BILIRUBIN, URINE NEGATIVE (NEG); ER URINALYSIS TAT 0 Hrs 27 Mins; KETONE, URINE TRACE MG/DL (NEG); LEUKOCYTE ESTERASE(NOT OR TRACE (NEG); NITRITE (URINE) NEG (NEG); WBC (NOT ORDERED) (RFLEX) 5 (0-5)
[2017-07-01] MEDS ORDERED: PROTONIX PO (13:30)
[2017-07-07] MEDS ORDERED: FESO4 PO (16:47)
[2017-07-07] MEDS ORDERED: T PO (16:48)
== END 2017-01-28 21:04 | disposition home or self-care (01) ==
LOC: ER 19:28
PROVIDERS: Emergency Medicine
DX: R53.1 Weakness (principal); J44.9 Chronic obstructive pulmonary disease, unspecified; I10 Essential (primary) hypertension; I50.9 Heart failure, unspecified; I48.91 Unspecified atrial fibrillation; F03.90 Unspecified dementia, unspecified severity, without behavioral disturbance, psychotic disturbance, mood disturbance, and anxiety; E11.9 Type 2 diabetes mellitus without complications; Z88.5 Allergy status to narcotic agent; Z79.899 Other long term (current) drug therapy
CPT/HCPCS: 36415; 71010; 80053; 81001; 85025; 85610; 85730; 86850; 86900; 86901; 93005; 99285

== ENCOUNTER 2017-02-05 14:26 | Inpatient (IN) | payer MEDICARE, OTHER ==
[2017-02-03 18:25] LABS: ALBUMIN 3.5 G/DL (3.5-5.0); ALKALINE PHOSPHATASE 66 U/L (45-117); CALCIUM, SERUM 9.3 MG/DL (8.5-10.4); CHLORIDE, SERUM 110 MMOL/L (96-112); GLOBULIN 3.5 G/DL (2.5-4.1); POTASSIUM, SERUM 4.7 MMOL/L (3.5-5.3); SGOT(AST) 22 U/L (5-40); SGPT(ALT) 16 U/L (5-65); SODIUM, SERUM 145 MMOL/L (135-148); TOTAL BILIRUBIN 0.2 MG/DL (0-1.2)
[2017-02-03 18:34] LABS: BUN (BLOOD UREA NITROGEN) 46 MG/DL (6-23); CO2 (CARBON DIOXIDE) 19 MMOL/L (24-34); CREATININE 2.67 MG/DL (0.70-1.30); GFR AFRICAN AMERICAN 24 ML/MIN (>=60); GFR NON AFRICAN AMERICAN 21 ML/MIN (>=60); GLUCOSE, SERUM 181 MG/DL (60-99)
--- NOTE | ~2017-02-05 | CN ---
Consultation Report [facility] [address] [place]. [address] NAME: MERCEDES RAMACHANDRAN : [birth year] STATUS : ADM IN PAT#: [id number] AGE: 86 ADM/REG DATE : 02/05/17 MR#: [id number] REPORT SERV DATE: 02/05/17 DICTATED BY: DATE: REPORT STATUS : Draft TRANSCRIBED BY: MODL DATE: 02/05/17 DATE OF CONSULTATION: REQUESTING PHYSICIAN: Ted Christopher M.D. REASON: Acute kidney injury. HISTORY OF PRESENT ILLNESS: This is a fairly pleasant 86-year-old, -[place] male patient, who also has mild dementia, we are asked to evaluate for acute kidney injury. He reports to [facility] with the assistance of his daughter, who is a labor and delivery nurse locally and with reported nausea, vomiting, and diarrhea, onset approximately 72 hours ago. The daughter reports that she has had a recent GI illness, most her coworkers in the Labor and Delivery unit at [facility] and she also provides care daily for her father who assists her family and feared that her father may also have some level of gastroenteritis from the illness and her staff also has been involved with. Her father has also recently had some other upper respiratory illness and appears to have received IM Rocephin and has also been placed on a course of p.o. Levaquin. The daughter reports that the patient initiated diarrhea, nausea and vomiting approximately 48-72 hours ago with a mild febrile episodes. She states that blood pressures at points were low, but she does not recall specific readings. She had initially attempted to transport the patient via EMS; however with the long wait in the emergency department, she opted to bring him for evaluation later in the day. He is chronically maintained on BETO inhibitor and is on metformin for blood sugar control. He is pleasantly confused, but does not provide much information in the way of HPI, which is provided essentially by his daughter as he is a poor historian. He is awake and alert, lying in bed this afternoon, in no acute distress. 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 Becca Scott. The remainder of his medical history is positive for colon polyps, hypertension, atrial fibrillation, CHF, bladder cancer, sleep apnea, diverticulosis, and gastric angiectasia. FAMILY HISTORY: Noncontributory and not reviewed during this consultation and dictation. SOCIAL HISTORY: Remote tobacco abuse. No EtOH. No illicit drugs. Lives with his and is cared for with the assistance of his daughter here locally. MEDICATIONS AND ALLERGIES: As follows: He lists morphine and codeine as allergies. ACTIVE MEDICATIONS: Include ProAir HFA inhaled two puffs p.r.n., albuterol one daily p.r.n. shortness of breath, aspirin 81 mg p.o. daily, B complex one tab p.o. daily, Pulmicort 0.5 inhaled twice daily, vitamin B12 1000 mcg daily, Aricept 10 mg p.o. daily, formoterol 20 mcg inhaled twice daily, Glucotrol 5 mg p.o. b.i.d., Lantus 10 units subcu at bedtime, Levaquin 500 mg p.o. daily, started on 02/03/2017, Megace 40 mg daily, metformin 500 mg p.o. b.i.d., Consultation Report [address] [place]. [address] NAME: MERCEDES RAMACHANDRAN : [birth year] STATUS : ADM IN [facility]#: [id number] AGE: 86 ADM/REG DATE : 02/05/17 MR#: [id number] REPORT SERV DATE: 02/05/17 DICTATED BY: DATE: REPORT STATUS : Draft TRANSCRIBED BY: MODL DATE: 02/05/17 metoprolol 12.5 mg p.o. t.i.d., Prilosec 20 mg p.o. daily, MiraLAX one packet p.o. daily, polysaccharide 150 mg p.o. b.i.d., Rythmol 300 mg p.o. t.i.d., Altace 2.5 mg daily, Daliresp 500 mcg p.o. at bedtime, Spiriva Handihaler one cap inhaled daily, and verapamil 200 mg p.o. daily. REVIEW OF SYSTEMS: Completed. Please see HPI for pertinent details, accomplished primarily with daughter with his family members assistance as the patient is a poor historian and somewhat demented. PHYSICAL EXAMINATION: VITAL SIGNS: Blood pressure 169/61, respiratory rate is 16, 100% on 2 L, 59 heart rate, respiratory rate of 15. GENERAL: He is a chronically ill-appearing, pleasantly demented -[place] male patient, lying in bed during evaluation. HEENT: Normocephalic and atraumatic. Normal ocular movements. No scleral icterus or conjunctival pallor is appreciated. NECK: Supple without thyromegaly. No JVD or mass. CHEST: Shows positive S1 and S2. No rubs or gallops. LUNGS: Diminished, but essentially clear to auscultation throughout with normal expansion and effort bilaterally. GI: Shows positive bowel sounds without appreciable mass or tenderness. : Deferred. EXTREMITIES: Show positive pulses to all four extremities. No clubbing, cyanosis, or edema. NEUROLOGIC: He is unable to be tested and is at baseline, somewhat demented, and he appears to be of appropriate mood and affect. LABORATORY DATA: Pertinent laboratories and imaging to this evaluation are as follows: Portable chest x-ray is negative for acute findings. Comprehensive metabolic panel: Sodium 145, potassium 4.7, chloride 110, CO2 19, BUN 46, creatinine 2.67. Reflected GFR at 24 mL/minute. Glucose of 181. Calcium 9.3, albumin 3.5, globulin 3.5, alkaline phos 66, ALT and AST at 16 and 22. Urinalysis is hazy in appearance, positive for 30 mg/dL of protein, trace amount of ketones, trace leukocyte esterase with bacteria, minimal white blood cells and red blood cells. CBC shows a white blood cell count of 6.4, RBC 3.84, hemoglobin 9.0, hematocrit 29.8, and platelets at 21.2. IMPRESSION AND PLAN: Acute kidney injury, on baseline creatinine of approximately 1.0 to 1.3 with possible chronic kidney disease with known baseline dementia with recent onset of nausea, vomiting, and diarrhea x72 hours per daughter who is at bedside and is employed as a professional registered nurse. The patient appears to be reasonably stable. His ejection fraction is known through available data here at current evaluation and I have discussed this patient in detail with Dr. Ted Christopher and we will proceed with the following measures. We will stop his angiotensin-converting enzyme inhibitor, as well as his metformin. Dr. Christopher will proceed to hydrate him with IV normal saline with initial saline bolus of 500 mL, then reduce the rate to 100 mL daily given his unknown ejection fraction. We will ask to watch Consultation Report [facility] [address] [place]. [address] NAME: MERCEDES RAMACHANDRAN : [birth year] STATUS : ADM IN PAT#: [id number] AGE: 86 ADM/REG DATE : 02/05/17 MR#: [id number] REPORT SERV DATE: 02/05/17 DICTATED BY: DATE: REPORT STATUS : Draft TRANSCRIBED BY: MODL DATE: 02/05/17 his fluid infusion carefully. He does have a depressed CO2 at 19 and to avoid overt sodium loading. We will give him p.o. bicarbonate as opposed to IV pushing sodium bicarb, also check urine sodium, urine creatinine, and urine urea, check postvoid residual. Condom catheter will be placed as the patient's daughter reports that the patient has a habit of yanking at lines, we do not wish to provide a mechanism for sustained injury. Also check renal ultrasound and given his ongoing chronic diarrhea with recent antibiotic, check Clostridium difficile, ova, parasites, and follow him with serial laboratories. Hopefully, the patient's serum creatinine will be corrected with these measures. We will watch him closely. Given his comorbidities and his dementia, he would not be a viable dialysis candidate should his creatinine worsen. Further modification of treatment plan may be made based on clinical presentation, patient's laboratory results, further consultation with renal attending. We appreciate consultation. We are glad to follow this patient with you. /JEANETTE Deyvi Morris NP / [id number] CC: Kacy Shah M.D.
--- NOTE | ~2017-02-05 | DS ---
Discharge Summary [address] [address] NAME: MERCEDES RAMACHANDRAN : [birth year] STATUS : DIS IN PAT#: [id number] AGE: 86 ADM/REG DATE : 02/05/17 MR#: [id number] REPORT SERV DATE: 02/15/17 DICTATED BY: ELOISA DUMONT DATE: 02/13/17 REPORT STATUS : Draft TRANSCRIBED BY: MODL DATE: 02/13/17 ADMISSION DATE: 02/05/2017 DISCHARGE DATE: 02/13/2017 DISCHARGE DIAGNOSES: 1. Acute kidney injury secondary to dehydration from acute gastroenteritis. 2. Chronic kidney disease 3. 3. Oligoarthritis right foot, suspected gout versus pseudogout, resolved with IV corticosteroids. 4. Transient pulmonary infiltrates probably secondary to aspiration with documented oropharyngeal dysphagia on modified barium swallow study. 5. Chronic obstructive pulmonary disease. 6. Chronic hypoxemic respiratory failure. 7. Transient rectal bleeding, thought to be surface/hemorrhoidal in the setting of hospitalization earlier this month for gastrointestinal bleeding with colonoscopy demonstrating internal hemorrhoids, diverticulosis, and 3 colon polyps and upper endoscopy demonstrating no abnormalities. 8. Congestive heart failure, chronic with normal ejection fraction. 9. Paroxysmal atrial fibrillation. 10.Systemic hypertension. 11.Chronic anemia. 12.Iron deficiency with ferritin of 5, treated with IV Nulecit this admission. 13.Type 2 diabetes, on insulin on admission with the addition of metformin and glipizide with hemoglobin A1c of 5.7. Nosocomial hypoglycemia. Metformin, glipizide, and basal insulin discontinued during hospitalization. 14.Dementia. 15.Bladder cancer post treatment. 16.B12 deficiency history. 17.Previous GI bleed, 05/2016. OPERATIONS AND PROCEDURES: None. PRESENT ILLNESS: This is an 86-year-old male, who was admitted by Dr. Ted Christopher on 02/05/2017 with 1. Acute kidney injury on chronic kidney disease 3. 2. Dehydration. 3. Acute gastroenteritis in the setting of a hospitalization here 01/21/2017 to 01/25/2017 with lower gastrointestinal bleeding. ADDITIONAL HISTORY: Per Dr. Christopher. PHYSICAL EXAMINATION: Per Dr. Christopher. ADMISSION LABORATORY: Per Dr. Christopher. Discharge Summary [address] [address] NAME: MERCEDES RAMACHANDRAN : [birth year] STATUS : DIS IN PAT#: [id number] AGE: 86 ADM/REG DATE : 02/05/17 MR#: [id number] REPORT SERV DATE: 02/15/17 DICTATED BY: ELOISA DUMONT DATE: 02/13/17 REPORT STATUS : Draft TRANSCRIBED BY: JEANETTE DATE: 02/13/17 HOSPITAL COURSE: He was admitted to [address] [place] [address]. He was given crystalloid volume resuscitation. Initial medication adjustments were made. Additional imaging was ordered. A renal ultrasound did not show any abnormalities. With the above-mentioned therapy, his BUN fell from 53 on the th to 20 at discharge and creatinine from 2.67 on the 15th to 1.14 at discharge. His admitting gastrointestinal symptoms likewise resolved. By the time of discharge, he was eating his normal diet. He was seen by Physical Therapy on the and inpatient rehab was recommended. His daughter choiced for [facility]. His hospital care was assumed by the undersigned from Dr. Christopher on 02/09/2017. On that day, he had no new symptoms. He had developed hypoglycemia. His basal insulin was discontinued. IV iron was initiated pending rehab approval. On 02/10/2017, he had a cough and low-grade fever to 100.5. On exam, he had some rhonchi. He had a tender right ankle and foot. A procalcitonin was less than 0.05. A urinalysis was normal. A foot and ankle x-ray did not show any acute abnormality. A chest x-ray showed pulmonary infiltrate/atelectasis. My impression was that he likely had oropharyngeal dysphagia and that his temp elevation might be related to aspiration versus acute gout or pseudogout. He was given IV Solu-Medrol. A modified barium swallow study was ordered. Over the course of the remainder of his hospitalization, he remained afebrile. His right ankle and foot edema and tenderness resolved and a followup chest x-ray showed improved infiltrates. A modified barium swallow study did demonstrate oropharyngeal dysphagia. Diet recommendations were made in addition to rehab E-stim and speech therapy. On 02/11/2017, he had been approved for rehab, but his discharge time was too late to ensure a safe transition. On 02/12/2017, he was seen and prepared for discharge. Ambulance transport arrived. At that time, he had a bowel movement and some blood was noted by the CLERICAL ADJUSTER. On my exam, his stool was brown and not bloody but he had some perirectal blood associated with a tight anal sphincter and hemorrhoidal tags. His recent endoscopic evaluation was reviewed. It was thought that his bleeding was probably surface bleeding. His hemoglobin was checked and was 7.7. Perirectal therapy was Discharge Summary [place] [address] [place] [address] NAME: MERCEDES RAMACHANDRAN : [birth year] STATUS : DIS IN PAT#: [id number] AGE: 86 ADM/REG DATE : 02/05/17 MR#: [id number] REPORT SERV DATE: 02/15/17 DICTATED BY: ELOISA DUMONT DATE: 02/13/17 REPORT STATUS : Draft TRANSCRIBED BY: JEANETTE DATE: 02/13/17 initiated and his discharge was delayed. Today no further rectal bleeding has been reported. He has no complaints. Exam is unchanged. His hemoglobin is stable at 7.7. It is felt he has achieved a level of improvement and stability where he can be safely transitioned to [facility] for rehab. He will continue his 24-hour O2. He will continue diet recommendations by Speech Therapy here and have speech therapy and E-stim there. He will also have OT and PT there. DISCHARGE MEDICATIONS: Aspirin 81 mg daily; Aricept 10 mg daily; Altorex 150 mg twice daily; NovoLog level 1 correction scale before meals, but no Lantus; metoprolol 12.5 mg 3 times daily; Prilosec 20 mg daily; Rythmol 300 mg 3 times daily; Daliresp 500 mcg daily, Spiriva one cap inhaled daily; B12 a 1000 mcg IM or subcu every 30 days; Pulmicort Respules 0.5 mg twice daily; Formoterol aerosols twice daily; DuoNeb every 4 hours while awake; verapamil ER 200 mg at bedtime; MiraLAX one packet daily; multivitamins daily; and Anusol-HC cream twice daily to perirectal area. He will not use Glucophage, ramipril, Glucotrol, or Megace on transfer. Discharge time greater than 30 minutes. DD/MODL Eloisa Dumont M.D. / [id number] CC: Kacy Joseph M.D. [facility]
--- NOTE | ~2017-02-05 | HP ---
History And Physical [place] [id number] [facility] [place]. [address] NAME: MERCEDES RAMACHANDRAN : [birth year] STATUS : ADM IN [facility]#: [id number] AGE: 86 ADM/REG DATE : 02/05/17 MR#: [id number] REPORT SERV DATE: 02/05/17 DICTATED BY: APARNA MG DATE: 02/05/17 REPORT STATUS : Draft TRANSCRIBED BY: MODMine DATE: 02/05/17 DATE OF ADMISSION: 02/05/2017 NEWS VIDEOTAPE EDITOR: Scottie Nicolas M.D. SOFTWARE FIRMWARE ENGINEER: Josef Evangelista M.D. UROLOGIST: Beto Quevedo M.D. HISTORY OF PRESENT ILLNESS: This is an 86-year-old male, who comes in for weakness. The patient has a history of dementia with his baseline being he lives with his , he is able to carry out the conversation, but he forgets quickly, he is able to feed himself and walk, but cannot dress himself. The patient was recently admitted and discharged here for GI bleed and acute blood loss anemia. He was transfused and was sent home. It was unclear where he bled, but they found internal hemorrhoids and diverticulosis on the scope. The patient also has an O2-dependent COPD, at 2 to 2.5 L, history of congestive heart failure, atrial fibrillation, hypertension, diabetes. The daughter, who is a nurse and very good historian, was recently battling a stomach bug. The patient then started having some weakness a few days after he left the hospital on 01/26, and it came to the point where he is not getting out of bed. On Wednesday, five days prior to admission, the patient started to have some diarrhea and afterwards some nausea and vomiting. The nausea and vomiting only happened once, and the patient is able to tolerate a liquid diet. However, the diarrhea persisted, occurring about twice a day until today. The patient went to see Dr. Pink, his PCP, two days ago, where the patient was found to have weakness and blood was taken. They got the report and it was found that the creatinine is elevated at 2.67, from 1.21 on 01/28. The patient was then told to come to be admitted and get a Renal consult. There was one episode where the patient had a low-grade temperature, had some sweats on top of his head, but no chills. The patient is incontinent of urine, and the daughter noted that he still has good urine output. There are no new rashes. No abdominal pain, back pain, shortness of breath, or cough and the rest of the 14-point review of systems is negative, except as above. PAST MEDICAL HISTORY: Includes the above, CKD 3 and history of GI bleed with AV malformation. ALLERGIES: HE IS ALLERGIC TO MORPHINE AND CODEINE. MEDICATIONS: Include albuterol, aspirin, vitamin B complex, Pulmicort, vitamin B12, Aricept, Perforomist, Glucotrol, Lantus, Levaquin, Megace, metformin, metoprolol, Prilosec, MiraLax, iron complex, Rythmol, Altace, Daliresp, Spiriva, and verapamil. PAST SURGICAL HISTORY: The patient had bladder cancer 20 years ago and was treated with some fluid instillation to the bladder, but no surgery or radiation. FAMILY HISTORY: Positive for diabetes and several cancers. History And Physical [address] [place]. [address] NAME: MERCEDES RAMACHANDRAN : [birth year] STATUS : ADM IN [facility]#: [id number] AGE: 86 ADM/REG DATE : 02/05/17 MR#: [id number] REPORT SERV DATE: 02/05/17 DICTATED BY: APARNA MG DATE: 02/05/17 REPORT STATUS : Draft TRANSCRIBED BY: JEANETTE DATE: 02/05/17 SOCIAL HISTORY: The patient does not smoke, drink alcohol, or use recreational drugs. Lives with the , and the daughter is two blocks away and visits him every day. PHYSICAL EXAMINATION: GENERAL: The patient is alert and oriented x2, not to time, not in cardiopulmonary distress. VITAL SIGNS: Include a saturation of 100% on 2 L, blood pressure of 169/61, temperature of 97.1, respirations of 15, heart rate of 59. NECK: He has supple neck. No JVD or carotid bruit. No lymphadenopathy. HEENT: Roberts conjunctivae. Anicteric sclerae. No pharyngeal erythema. LUNGS: Good air entry. I do not appreciate any crackles or wheezes at this time. CARDIOVASCULAR: Regular rate and rhythm. No murmurs appreciated. ABDOMEN: Positive bowel sounds. Soft and nontender. No masses. EXTREMITIES: Fair pulses. No edema. SKIN: He does have some poor skin turgor. ASSESSMENT: 1. Acute kidney injury on chronic kidney disease 3. 2. Dehydration. 3. Acute gastroenteritis. 4. O2-dependent chronic obstructive pulmonary disease. 5. History of congestive heart failure. 6. History of atrial fibrillation. 7. History of hypertension. 8. Diabetes. 9. Recent GI bleed and acute blood loss anemia. PLAN: The patient likely has dehydration from an acute gastroenteritis, which has likely affected his kidneys. We will admit to telemetry and gently hydrate to improve the kidney function, but not cause an acute congestive heart failure. We will check blood work and correct any electrolyte imbalances and hold aspirin, antibiotics, and BETO inhibitor for now and get Renal per PCP's request. We will check an ultrasound to rule out any kind of obstruction on the genitourinary system, especially with a history of bladder cancer. We will check the urine and stool and also check his chest x-ray, as his previous one shows left basilar atelectasis versus early infiltrate on 01/28. We will continue his Levemir subcu insulin protocol, but I will hold off the Glucotrol for now. We will check a hemoglobin A1c as well. This has been explained to the patient and the daughter, they agreed and understood the plan. JORDAN/JEANETTE Aparna Mg M.D. / [id number] History And Physical [address] [address] NAME: MERCEDES RAMACHANDRAN : [birth year] STATUS : ADM IN [facility]#: [id number] AGE: 86 ADM/REG DATE : 02/05/17 MR#: [id number] REPORT SERV DATE: 02/05/17 DICTATED BY: APARNA MG DATE: 02/05/17 REPORT STATUS : Draft TRANSCRIBED BY: JEANETTE DATE: 02/05/17 CC: Kacy Shah M.D.
[2017-02-05] MEDS ORDERED: LEVAQUIN5T PO (15:11)
[2017-02-05] MEDS ORDERED: VITAMIN B PO (15:15)
[2017-02-05 17:34] LABS: BASOPHILS 0.2 %; BASOPHILS ABSOLUTE 0.02 10/3/uL (0.0-0.16); EOSINOPHILS 0.7 %; EOSINOPHILS ABSOLUTE 0.08 10/3/uL (0.0-0.53); HEMATOCRIT 31.6 % (40.0-51.0); HEMOGLOBIN 9.6 g/dL (13.6-17.8); IMMATURE GRANULOCYTES 0.2 %; IMMATURE GRANULOCYTES ABSOLUTE 0.03 10/3/uL (0.0-0.11); LYMPHOCYTES ABSOLUTE 0.84 10/3/uL (0.67-4.30); MEAN CORPUS HGB CONC 30.4 g/dL (32.0-36.0); MEAN CORPUSCULAR HEMOGLOB 22.9 pg (26.0-34.0); MONOCYTES 6.4 %; MONOCYTES ABSOLUTE 0.77 10/3/uL (0.21-1.20); NEUTROPHILS 85.5 %; NEUTROPHILS ABSOLUTE 10.31 10/3/uL (2.02-8.40); RBC DISTRIBUTION WIDTH 21.2 % (12.0-16.0)
[2017-02-05 17:39] LABS: INTERNATIONAL NORMAL RATI 1.2 UNITS (-); MANUAL DIFF NO %; MEAN CORPUSCULAR VOLUME 75.2 fL (80-100); PARTIAL THROMBO TIME 28.8 SEC (22.5-37.2); PLATELET COUNT 547 10/3/uL (150-400); PROTIME (NOT ORD) 14.7 SEC (12.0-14.5); WHITE BLOOD CELLS 12.1 10/3/uL (4.5-10.5)
[2017-02-05 17:56] LABS: A/G RATIO 0.7 (0.7-1.9); ALBUMIN 3.2 G/DL (3.5-5.0); ALKALINE PHOSPHATASE 62 U/L (45-117); BUN (BLOOD UREA NITROGEN) 53 MG/DL (6-23); CALCIUM, SERUM 9.2 MG/DL (8.5-10.4); CHLORIDE, SERUM 119 MMOL/L (96-112); CO2 (CARBON DIOXIDE) 21 MMOL/L (24-34); CREATININE 2.43 MG/DL (0.70-1.30); GFR AFRICAN AMERICAN 27 ML/MIN (>=60); GFR NON AFRICAN AMERICAN 23 ML/MIN (>=60); GLOBULIN 4.6 G/DL (2.5-4.1); GLUCOSE, SERUM 166 MG/DL (60-99); PHOSPHORUS, SERUM 2.6 MG/DL (2.5-4.5); SGOT(AST) 12 U/L (5-40); SGPT(ALT) 16 U/L (5-65); SODIUM, SERUM 149 MMOL/L (135-148); TOTAL BILIRUBIN 0.1 MG/DL (0-1.2); TOTAL PROTEIN 7.8 G/DL (6.0-8.5); ULTRASENSITIVE TSH 0.457 MCIU/ML (0.358-3.740)
[2017-02-05 18:26] LABS: PROCALCITONIN 0.84 ng/mL (<0.5)
[2017-02-05 23:16] LABS: ASCORBIC ACID (UR NOT ORDER) NEG (NEG); BILIRUBIN, URINE NEGATIVE (NEG); KETONE, URINE NEGATIVE (NEG); LEUKOCYTE ESTERASE(NOT OR NEG (NEG); WBC (NOT ORDERED) (RFLEX) 4 (0-5)
[2017-02-06 07:51] LABS: BASOPHILS 0.3 %; BASOPHILS ABSOLUTE 0.02 10/3/uL (0.0-0.16); EOSINOPHILS 2.1 %; EOSINOPHILS ABSOLUTE 0.15 10/3/uL (0.0-0.53); HEMOGLOBIN 8.8 g/dL (13.6-17.8); IMMATURE GRANULOCYTES 0.3 %; IMMATURE GRANULOCYTES ABSOLUTE 0.02 10/3/uL (0.0-0.11); LYMPHOCYTES 10.8 %; LYMPHOCYTES ABSOLUTE 0.78 10/3/uL (0.67-4.30); MEAN CORPUS HGB CONC 31.2 g/dL (32.0-36.0); MEAN CORPUSCULAR HEMOGLOB 23.3 pg (26.0-34.0); MEAN CORPUSCULAR VOLUME 74.8 fL (80-100); MEAN PLATELET VOLUME 10.4 fL (9.2-13.0); MONOCYTES 10.7 %; MONOCYTES ABSOLUTE 0.77 10/3/uL (0.21-1.20); NEUTROPHILS 75.8 %; NEUTROPHILS ABSOLUTE 5.49 10/3/uL (2.02-8.40); PLATELET COUNT 502 10/3/uL (150-400); RBC DISTRIBUTION WIDTH 21.1 % (12.0-16.0); RED CELL COUNT 3.77 10/6/uL (4.7-6.1)
[2017-02-06 07:58] LABS: HEMATOCRIT 28.2 % (40.0-51.0); MANUAL DIFF NO %; WHITE BLOOD CELLS 7.2 10/3/uL (4.5-10.5)
[2017-02-06 07:59] LABS: ALBUMIN 2.7 G/DL (3.5-5.0); CALCIUM, SERUM 8.6 MG/DL (8.5-10.4); CHLORIDE, SERUM 122 MMOL/L (96-112); CO2 (CARBON DIOXIDE) 19 MMOL/L (24-34); PHOSPHORUS, SERUM 2.4 MG/DL (2.5-4.5); POTASSIUM, SERUM 3.9 MMOL/L (3.5-5.3); SODIUM, SERUM 151 MMOL/L (135-148)
[2017-02-06 08:00] LABS: BUN (BLOOD UREA NITROGEN) 37 MG/DL (6-23); GFR AFRICAN AMERICAN 44 ML/MIN (>=60); GFR NON AFRICAN AMERICAN 38 ML/MIN (>=60); GLUCOSE, SERUM 98 MG/DL (60-99)
[2017-02-07 05:29] LABS: BASOPHILS 0.5 %; BASOPHILS ABSOLUTE 0.03 10/3/uL (0.0-0.16); EOSINOPHILS 3.5 %; EOSINOPHILS ABSOLUTE 0.23 10/3/uL (0.0-0.53); HEMATOCRIT 25.4 % (40.0-51.0); HEMOGLOBIN 7.8 g/dL (13.6-17.8); IMMATURE GRANULOCYTES 0.3 %; IMMATURE GRANULOCYTES ABSOLUTE 0.02 10/3/uL (0.0-0.11); LYMPHOCYTES 14.8 %; LYMPHOCYTES ABSOLUTE 0.98 10/3/uL (0.67-4.30); MEAN CORPUS HGB CONC 30.7 g/dL (32.0-36.0); MEAN CORPUSCULAR HEMOGLOB 23.2 pg (26.0-34.0); MEAN CORPUSCULAR VOLUME 75.6 fL (80-100); MEAN PLATELET VOLUME 9.9 fL (9.2-13.0); MONOCYTES 12.4 %; MONOCYTES ABSOLUTE 0.82 10/3/uL (0.21-1.20); NEUTROPHILS 68.5 %; NEUTROPHILS ABSOLUTE 4.55 10/3/uL (2.02-8.40); PLATELET COUNT 420 10/3/uL (150-400); RBC DISTRIBUTION WIDTH 20.8 % (12.0-16.0); RED CELL COUNT 3.36 10/6/uL (4.7-6.1); WHITE BLOOD CELLS 6.6 10/3/uL (4.5-10.5)
[2017-02-07 05:36] LABS: MANUAL DIFF NO %
[2017-02-07 05:38] LABS: CALCIUM, SERUM 8.2 MG/DL (8.5-10.4); CHLORIDE, SERUM 117 MMOL/L (96-112); CO2 (CARBON DIOXIDE) 20 MMOL/L (24-34); CREATININE 1.21 MG/DL (0.70-1.30); GFR AFRICAN AMERICAN 62 ML/MIN (>=60); GFR NON AFRICAN AMERICAN 54 ML/MIN (>=60); GLUCOSE, SERUM 89 MG/DL (60-99); POTASSIUM, SERUM 3.5 MMOL/L (3.5-5.3); SODIUM, SERUM 147 MMOL/L (135-148)
[2017-02-07 05:39] LABS: BUN (BLOOD UREA NITROGEN) 22 MG/DL (6-23)
[2017-02-08 04:36] LABS: BASOPHILS 0.3 %; BASOPHILS ABSOLUTE 0.02 10/3/uL (0.0-0.16); EOSINOPHILS 3.5 %; EOSINOPHILS ABSOLUTE 0.28 10/3/uL (0.0-0.53); HEMATOCRIT 25.9 % (40.0-51.0); IMMATURE GRANULOCYTES 0.4 %; IMMATURE GRANULOCYTES ABSOLUTE 0.03 10/3/uL (0.0-0.11); LYMPHOCYTES 12.4 %; LYMPHOCYTES ABSOLUTE 0.98 10/3/uL (0.67-4.30); MEAN CORPUS HGB CONC 30.9 g/dL (32.0-36.0); MEAN CORPUSCULAR HEMOGLOB 22.9 pg (26.0-34.0); MEAN CORPUSCULAR VOLUME 74.2 fL (80-100); MONOCYTES 8.5 %; MONOCYTES ABSOLUTE 0.67 10/3/uL (0.21-1.20); NEUTROPHILS 74.9 %; NEUTROPHILS ABSOLUTE 5.91 10/3/uL (2.02-8.40); PLATELET COUNT 456 10/3/uL (150-400); RBC DISTRIBUTION WIDTH 20.4 % (12.0-16.0); RED CELL COUNT 3.49 10/6/uL (4.7-6.1); WHITE BLOOD CELLS 7.9 10/3/uL (4.5-10.5)
[2017-02-08 04:38] LABS: MANUAL DIFF NO %
[2017-02-08 04:51] LABS: CALCIUM, SERUM 8.5 MG/DL (8.5-10.4); CHLORIDE, SERUM 113 MMOL/L (96-112); CO2 (CARBON DIOXIDE) 21 MMOL/L (24-34); CREATININE 0.99 MG/DL (0.70-1.30); GFR AFRICAN AMERICAN 79 ML/MIN (>=60); GFR NON AFRICAN AMERICAN 68 ML/MIN (>=60); POTASSIUM, SERUM 3.4 MMOL/L (3.5-5.3); SODIUM, SERUM 145 MMOL/L (135-148)
[2017-02-08 04:52] LABS: BUN (BLOOD UREA NITROGEN) 10 MG/DL (6-23); GLUCOSE, SERUM 60 MG/DL (60-99)
[2017-02-08 05:30] LABS: GIANT PLATELET FEW; PLATELET ESTIMATE INC (ADEQUATE); RBC MORPHOLOGY ABN (NORMAL)
[2017-02-08 05:36] LABS: PROCALCITONIN <0.05 ng/mL (<0.5)
[2017-02-09 03:52] LABS: BASOPHILS 0.5 %; BASOPHILS ABSOLUTE 0.03 10/3/uL (0.0-0.16); EOSINOPHILS 3.7 %; EOSINOPHILS ABSOLUTE 0.24 10/3/uL (0.0-0.53); HEMATOCRIT 23.7 % (40.0-51.0); HEMOGLOBIN 7.5 g/dL (13.6-17.8); IMMATURE GRANULOCYTES 0.5 %; IMMATURE GRANULOCYTES ABSOLUTE 0.03 10/3/uL (0.0-0.11); LYMPHOCYTES ABSOLUTE 1.16 10/3/uL (0.67-4.30); MEAN CORPUS HGB CONC 31.6 g/dL (32.0-36.0); MEAN CORPUSCULAR HEMOGLOB 23.1 pg (26.0-34.0); MEAN CORPUSCULAR VOLUME 72.9 fL (80-100); MEAN PLATELET VOLUME 9.6 fL (9.2-13.0); MONOCYTES 10.8 %; NEUTROPHILS 66.5 %; PLATELET COUNT 400 10/3/uL (150-400); RBC DISTRIBUTION WIDTH 20.4 % (12.0-16.0); RED CELL COUNT 3.25 10/6/uL (4.7-6.1); WHITE BLOOD CELLS 6.5 10/3/uL (4.5-10.5)
[2017-02-09 03:53] LABS: MANUAL DIFF NO %
[2017-02-09 04:06] LABS: BUN (BLOOD UREA NITROGEN) 10 MG/DL (6-23); CALCIUM, SERUM 8.4 MG/DL (8.5-10.4); CHLORIDE, SERUM 112 MMOL/L (96-112); CO2 (CARBON DIOXIDE) 24 MMOL/L (24-34); CREATININE 0.93 MG/DL (0.70-1.30); GFR AFRICAN AMERICAN 85 ML/MIN (>=60); GFR NON AFRICAN AMERICAN 74 ML/MIN (>=60); GLUCOSE, SERUM 55 MG/DL (60-99); POTASSIUM, SERUM 3.9 MMOL/L (3.5-5.3); SODIUM, SERUM 143 MMOL/L (135-148)
[2017-02-10 06:35] LABS: HEMATOCRIT 24.3 % (40.0-51.0); HEMOGLOBIN 7.5 g/dL (13.6-17.8); MANUAL DIFF YES %; MEAN CORPUS HGB CONC 30.9 g/dL (32.0-36.0); MEAN CORPUSCULAR HEMOGLOB 22.8 pg (26.0-34.0); MEAN CORPUSCULAR VOLUME 73.9 fL (80-100); MEAN PLATELET VOLUME 10.3 fL (9.2-13.0); PLATELET COUNT 431 10/3/uL (150-400); RBC DISTRIBUTION WIDTH 20.9 % (12.0-16.0); RED CELL COUNT 3.29 10/6/uL (4.7-6.1)
[2017-02-10 06:52] LABS: BUN (BLOOD UREA NITROGEN) 10 MG/DL (6-23); CALCIUM, SERUM 8.1 MG/DL (8.5-10.4); CHLORIDE, SERUM 110 MMOL/L (96-112); CO2 (CARBON DIOXIDE) 23 MMOL/L (24-34); CREATININE 1.12 MG/DL (0.70-1.30); GFR AFRICAN AMERICAN 68 ML/MIN (>=60); GFR NON AFRICAN AMERICAN 59 ML/MIN (>=60); POTASSIUM, SERUM 4.4 MMOL/L (3.5-5.3); SODIUM, SERUM 142 MMOL/L (135-148)
[2017-02-10 06:55] LABS: GLUCOSE, SERUM 114 MG/DL (60-99)
[2017-02-10 07:34] LABS: EOSINOPHILS 2 %; EOSINOPHILS ABSOLUTE (CALC) 0.16 10/3/uL (0.0-0.53); LYMPHOCYTES 16 %; LYMPHOCYTES ABSOLUTE (CALC) 1.28 10/3/uL (0.67-4.30); MONOCYTES 11 %; MONOCYTES ABSOLUTE (CALC) 0.88 10/3/uL (0.21-1.20); NEUTROPHILS ABSOLUTE (CALC) 5.68 10/3/uL (2.02-8.40); OVALOCYTES 1+ (3-10/OIF) (0-2/OIF); PLATELET ESTIMATE SLT INC (ADEQUATE); RBC MORPHOLOGY ABN (NORMAL); SCHISTOCYTES OCC (0-2/OIF); SEGMENTED NEUTROPHIL (0) 71 %; TEARDROP SHAPED RBCS OCC (0-2/OIF); TOTAL NUCLEATED CELLS 100
[2017-02-10 07:35] LABS: HELMET CELLS OCC (0-2/OIF)
[2017-02-10 16:08] LABS: PROCALCITONIN < 0.05 ng/mL (<0.5)
[2017-02-10 17:01] LABS: ASCORBIC ACID (UR NOT ORDER) 20 (NEG); BILIRUBIN, URINE NEGATIVE (NEG); KETONE, URINE NEGATIVE (NEG); LEUKOCYTE ESTERASE(NOT OR NEG (NEG); WBC (NOT ORDERED) (RFLEX) 1 (0-5)
[2017-02-10 19:00] LABS: C-REACTIVE PROTEIN 68.5 MG/L (<8.0)
[2017-02-11 03:38] LABS: BASOPHILS 0.1 %; BASOPHILS ABSOLUTE 0.01 10/3/uL (0.0-0.16); EOSINOPHILS 0 %; HEMATOCRIT 24.7 % (40.0-51.0); HEMOGLOBIN 7.6 g/dL (13.6-17.8); IMMATURE GRANULOCYTES 0.6 %; IMMATURE GRANULOCYTES ABSOLUTE 0.06 10/3/uL (0.0-0.11); LYMPHOCYTES ABSOLUTE 0.42 10/3/uL (0.67-4.30); MEAN CORPUS HGB CONC 30.8 g/dL (32.0-36.0); MEAN CORPUSCULAR HEMOGLOB 22.5 pg (26.0-34.0); MEAN CORPUSCULAR VOLUME 73.1 fL (80-100); MONOCYTES 1.4 %; MONOCYTES ABSOLUTE 0.15 10/3/uL (0.21-1.20); NEUTROPHILS 93.9 %; NEUTROPHILS ABSOLUTE 9.93 10/3/uL (2.02-8.40); PLATELET COUNT 454 10/3/uL (150-400); RBC DISTRIBUTION WIDTH 21.1 % (12.0-16.0); RED CELL COUNT 3.38 10/6/uL (4.7-6.1); WHITE BLOOD CELLS 10.6 10/3/uL (4.5-10.5)
[2017-02-11 03:40] LABS: MANUAL DIFF NO %
[2017-02-11 05:24] LABS: PLATELET ESTIMATE SLT INC (ADEQUATE)
[2017-02-11 05:25] LABS: ANISOCYTOSIS 1+ (5-10/OIF) (0-5/OIF); ELLIPTOCYTES 1+ (3-10/OIF) (0-2/OIF); HELMET CELLS OCC (0-2/OIF); SCHISTOCYTES FEW (3-10/OIF)
[2017-02-11 06:30] LABS: POTASSIUM, SERUM 4.4 MMOL/L (3.5-5.3); SODIUM, SERUM 142 MMOL/L (135-148)
[2017-02-11 07:02] LABS: CHLORIDE, SERUM 110 MMOL/L (96-112); CO2 (CARBON DIOXIDE) 23 MMOL/L (24-34); CREATININE 1.03 MG/DL (0.70-1.30); GFR AFRICAN AMERICAN 75 ML/MIN (>=60); GFR NON AFRICAN AMERICAN 65 ML/MIN (>=60)
[2017-02-11 07:03] LABS: BUN (BLOOD UREA NITROGEN) 16 MG/DL (6-23); GLUCOSE, SERUM 207 MG/DL (60-99)
[2017-02-11 07:10] LABS: CALCIUM, SERUM 8.7 MG/DL (8.5-10.4)
[2017-02-12 07:56] LABS: BASOPHILS 0.1 %; BASOPHILS ABSOLUTE 0.01 10/3/uL (0.0-0.16); EOSINOPHILS 0 %; HEMATOCRIT 24.2 % (40.0-51.0); HEMOGLOBIN 7.7 g/dL (13.6-17.8); IMMATURE GRANULOCYTES 0.5 %; IMMATURE GRANULOCYTES ABSOLUTE 0.06 10/3/uL (0.0-0.11); LYMPHOCYTES 5.4 %; LYMPHOCYTES ABSOLUTE 0.69 10/3/uL (0.67-4.30); MANUAL DIFF NO %; MEAN CORPUS HGB CONC 31.8 g/dL (32.0-36.0); MEAN CORPUSCULAR HEMOGLOB 23.1 pg (26.0-34.0); MEAN CORPUSCULAR VOLUME 72.7 fL (80-100); MEAN PLATELET VOLUME 9.8 fL (9.2-13.0); MONOCYTES 8.8 %; MONOCYTES ABSOLUTE 1.13 10/3/uL (0.21-1.20); NEUTROPHILS 85.2 %; NEUTROPHILS ABSOLUTE 10.97 10/3/uL (2.02-8.40); PLATELET COUNT 430 10/3/uL (150-400); RBC DISTRIBUTION WIDTH 21.7 % (12.0-16.0); RED CELL COUNT 3.33 10/6/uL (4.7-6.1); WHITE BLOOD CELLS 12.9 10/3/uL (4.5-10.5)
[2017-02-12 08:08] LABS: BUN (BLOOD UREA NITROGEN) 20 MG/DL (6-23); C-REACTIVE PROTEIN 40.2 MG/L (<8.0); CALCIUM, SERUM 8.6 MG/DL (8.5-10.4); CHLORIDE, SERUM 111 MMOL/L (96-112); CO2 (CARBON DIOXIDE) 26 MMOL/L (24-34); CREATININE 1.14 MG/DL (0.70-1.30); GFR AFRICAN AMERICAN 67 ML/MIN (>=60); GFR NON AFRICAN AMERICAN 58 ML/MIN (>=60); GLUCOSE, SERUM 134 MG/DL (60-99); POTASSIUM, SERUM 4.6 MMOL/L (3.5-5.3); SODIUM, SERUM 144 MMOL/L (135-148)
[2017-02-13 08:01] LABS: BASOPHILS 0.1 %; BASOPHILS ABSOLUTE 0.01 10/3/uL (0.0-0.16); EOSINOPHILS 0.1 %; EOSINOPHILS ABSOLUTE 0.02 10/3/uL (0.0-0.53); HEMATOCRIT 24.2 % (40.0-51.0); HEMOGLOBIN 7.7 g/dL (13.6-17.8); IMMATURE GRANULOCYTES 0.6 %; IMMATURE GRANULOCYTES ABSOLUTE 0.08 10/3/uL (0.0-0.11); LYMPHOCYTES 7.5 %; LYMPHOCYTES ABSOLUTE 1.07 10/3/uL (0.67-4.30); MEAN CORPUS HGB CONC 31.8 g/dL (32.0-36.0); MEAN CORPUSCULAR HEMOGLOB 23.3 pg (26.0-34.0); MEAN CORPUSCULAR VOLUME 73.1 fL (80-100); MEAN PLATELET VOLUME 9.6 fL (9.2-13.0); MONOCYTES 8.9 %; MONOCYTES ABSOLUTE 1.27 10/3/uL (0.21-1.20); NEUTROPHILS 82.8 %; NEUTROPHILS ABSOLUTE 11.78 10/3/uL (2.02-8.40); PLATELET COUNT 450 10/3/uL (150-400); RBC DISTRIBUTION WIDTH 22.1 % (12.0-16.0); RED CELL COUNT 3.31 10/6/uL (4.7-6.1); WHITE BLOOD CELLS 14.2 10/3/uL (4.5-10.5)
[2017-02-13 08:03] LABS: MANUAL DIFF NO %
[2017-02-13 08:20] LABS: OVALOCYTES 1+ (3-10/OIF) (0-2/OIF); PLATELET ESTIMATE SLT INC (ADEQUATE); TEARDROP SHAPED RBCS OCC (0-2/OIF)
[2017-02-13 08:21] LABS: ACANTHOCYTES OCC (0-2/OIF); RBC MORPHOLOGY ABN (NORMAL); SCHISTOCYTES OCC (0-2/OIF)
[2017-07-01] MEDS ORDERED: PROTONIX PO (13:30)
[2017-07-07] MEDS ORDERED: FESO4 PO (16:47)
[2017-07-07] MEDS ORDERED: T PO (16:48)
== END 2017-02-13 16:00 | DRG 683 ==
LOC: 6NO 14:26
PROVIDERS: Family Medicine; Internal Medicine; Pediatrics
DX: N17.9 Acute kidney failure, unspecified (principal); J96.11 Chronic respiratory failure with hypoxia; E11.649 Type 2 diabetes mellitus with hypoglycemia without coma; I48.0 Paroxysmal atrial fibrillation; R13.12 Dysphagia, oropharyngeal phase; Z99.81 Dependence on supplemental oxygen; J44.9 Chronic obstructive pulmonary disease, unspecified; E86.0 Dehydration; I13.0 Hypertensive heart and chronic kidney disease with heart failure and stage 1 through stage 4 chronic kidney disease, or unspecified chronic kidney disease; I50.9 Heart failure, unspecified; K52.9 Noninfective gastroenteritis and colitis, unspecified; N18.3 Chronic kidney disease, stage 3 (moderate); M10.9 Gout, unspecified; M13.871 Other specified arthritis, right ankle and foot; Z86.010 Personal history of colon polyps; K64.8 Other hemorrhoids; Z85.51 Personal history of malignant neoplasm of bladder
CPT/HCPCS: 71010; 73610-RT; 73630-RT; 74230; 76775; 80048; 80053; 80069; 81001; 82150; 82570; 82962; 83036; 83690; 83735; 84100; 84145; 84300; 84443; 84540; 84550; 85025; 85610; 85730; 86140; 87328; 87329; 87493; 87493-59; 89055; 92611-GN; 93005; 94640; 97110-GP; 97116-GP; 97161-GP; 97530-GP; A9270-GY; G8978-CL-GP; G8979-CJ-GP; G8996-CK-GN; G8997-CK-GN; G8998-CK-GN; J2916; J2920

== ENCOUNTER 2017-05-08 21:58 | Emergency (ER) | payer MEDICARE, OTHER ==
[2017-05-08 20:37] LABS: BASOPHILS 0.2 %; BASOPHILS ABSOLUTE 0.01 10/3/uL (0.0-0.16); EOSINOPHILS 4.1 %; EOSINOPHILS ABSOLUTE 0.23 10/3/uL (0.0-0.53); HEMATOCRIT 29.3 % (40.0-51.0); HEMOGLOBIN 9.3 g/dL (13.6-17.8); IMMATURE GRANULOCYTES 0.4 %; IMMATURE GRANULOCYTES ABSOLUTE 0.02 10/3/uL (0.0-0.11); LYMPHOCYTES 30.2 %; MEAN CORPUS HGB CONC 31.7 g/dL (32.0-36.0); MEAN CORPUSCULAR HEMOGLOB 25.6 pg (26.0-34.0); MEAN PLATELET VOLUME 9.4 fL (9.2-13.0); MONOCYTES 8.2 %; MONOCYTES ABSOLUTE 0.46 10/3/uL (0.21-1.20); NEUTROPHILS 56.9 %; PLATELET COUNT 423 10/3/uL (150-400); RED CELL COUNT 3.63 10/6/uL (4.7-6.1)
[2017-05-08 20:39] LABS: ER CBC TAT 0 Hrs 09 Mins; MANUAL DIFF NO %; MEAN CORPUSCULAR VOLUME 80.7 fL (80-100); RBC DISTRIBUTION WIDTH 16.2 % (12.0-16.0); WHITE BLOOD CELLS 5.6 10/3/uL (4.5-10.5)
[2017-05-08 20:50] LABS: ALKALINE PHOSPHATASE 52 U/L (45-117); CALCIUM, SERUM 9.2 MG/DL (8.5-10.4); CHLORIDE, SERUM 106 MMOL/L (96-112); CO2 (CARBON DIOXIDE) 27 MMOL/L (24-34); GLOBULIN 3.8 G/DL (2.5-4.1); POTASSIUM, SERUM 4.2 MMOL/L (3.5-5.3); SGOT(AST) 3 U/L (5-40); SGPT(ALT) 13 U/L (5-65); SODIUM, SERUM 140 MMOL/L (135-148); TOTAL BILIRUBIN 0.1 MG/DL (0-1.2); TOTAL PROTEIN 7.6 G/DL (6.0-8.5)
[2017-05-08 20:55] LABS: ALBUMIN 3.8 G/DL (3.5-5.0); BUN (BLOOD UREA NITROGEN) 24 MG/DL (6-23); CREATININE 1.52 MG/DL (0.70-1.30); GFR AFRICAN AMERICAN 47 ML/MIN (>=60); GFR NON AFRICAN AMERICAN 41 ML/MIN (>=60); GLUCOSE, SERUM 49 MG/DL (60-99)
[2017-05-08 21:04] LABS: ALLENS TEST Pos; BE (BASE EXCESS) -2.9 MEQ/L (0 +/- 2.5); CARBOXYHEMOGLOBIN 1.3 % (0-3); DEVICE NC; HCO3 (ACTUAL BICARBONATE) 20.9 MEQ/L (23-27); HEMOBLOGIN CONTENT 8.8 G/DL (14-18); INSTRUMENT SERIAL # 8087; METHEMOGLOBIN 0.4 % (0-3); O2 CONTENT 12.3 VOL% (18-24); OPERATOR ID 33449; PCO2 (CO2 TENSION) 32 MMHG (35-45); PO2 (O2 TENSION) 128 MMHG (79-93); SAMPLE Arterial; pH 7.43 (7.37-7.43)
[2017-05-08 21:44] LABS: TROPONIN I <0.02 NG/ML (<0.05)
[~2017-05-08 21:58] MED LIST changes: +LEVAQUIN5T PO
[2017-05-08 22:03] LABS: ASCORBIC ACID (UR NOT ORDER) 40 (NEG); BILIRUBIN, URINE NEGATIVE (NEG); ER URINALYSIS TAT 0 Hrs 08 Mins; KETONE, URINE NEGATIVE (NEG); LEUKOCYTE ESTERASE(NOT OR TRACE (NEG); NITRITE (URINE) NEG (NEG); WBC (NOT ORDERED) (RFLEX) 3 (0-5)
[2017-07-01] MEDS ORDERED: PROTONIX PO (13:30)
[2017-07-07] MEDS ORDERED: FESO4 PO (16:47)
[2017-07-07] MEDS ORDERED: T PO (16:48)
== END 2017-05-09 00:56 | disposition home or self-care (01) ==
LOC: ER 21:58
PROVIDERS: Emergency Medicine
DX: R53.1 Weakness (principal); J44.9 Chronic obstructive pulmonary disease, unspecified; I48.91 Unspecified atrial fibrillation; I50.9 Heart failure, unspecified; N18.9 Chronic kidney disease, unspecified; E11.9 Type 2 diabetes mellitus without complications; F03.90 Unspecified dementia, unspecified severity, without behavioral disturbance, psychotic disturbance, mood disturbance, and anxiety; D64.9 Anemia, unspecified; Z88.5 Allergy status to narcotic agent; Z79.899 Other long term (current) drug therapy; Z79.4 Long term (current) use of insulin; Z85.51 Personal history of malignant neoplasm of bladder
CPT/HCPCS: 36600; 71010; 80053; 81001; 82805; 82962; 83880; 84484; 85025; 87040; 93005; 99285